=== PATIENT | female | born 1990 | race Native Hawaiian/Other Pacific Islander ===

== ENCOUNTER → 2021-12-25 11:27 | Outpatient (CLI) | payer OTHER, SELFPAY ==
[2021-12-25 14:28] LABS: COVID19 -Nasal RAPID Negative (Negative)
== END ==
PROVIDERS: Referring Provider Orthopaedic Surgery; Visit Provider Orthopaedic Surgery
DX: Z20.822 Contact with and (suspected) exposure to COVID-19 (principal)
CPT/HCPCS: 87635; C9803

== ENCOUNTER 2021-12-26 10:20 | Day surgery (SDC) | payer OTHER, SELFPAY ==
[2021-12-25 12:32] VITALS: BMI 25.4
[2021-12-26] VITALS (10 sets, daily range): BP systolic 104–134; BP diastolic 56–86; PULSE 67–99; RESP 12–17; TEMP 36.5–37.3; O2SAT 94–100; BMI 24.2
[2021-12-26] MEDS: LACTATED RINGERS 1,000 ML 42 ML IV (11:07)
--- NOTE | 2021-12-26 11:54 | PM.PREOP ---
Pre-operative Note Interval Note History & Physical reviewed/Exam performed by Physician: Yes Changes to H&P: No
[2021-12-26] MEDS: CEFAZOLIN 2 GM/100 ML PREMIX 100 ML IV (12:15)
[2021-12-26] MEDS: TRANEXAMIC ACID 1,000 MG in SODIUM CHLORIDE 0.9% 100 ML 200 MG IV (12:20)
--- NOTE | 2021-12-26 12:34 | SUR.OPER ---
Supine on padded OR bed. Pillow under head, arms secured on padded armboards <90 degree abduction. Safety belt across torso. Non-operative leg secured with tape over blanket over lower leg. Operative leg secured in Nathe positioner. Foam padded brace at thigh of operative leg.
--- NOTE | 2021-12-26 14:38 | PM.OP.1 ---
Procedure & Clinicians Procedure: One stage ACL revision to a quadriceps autograft Same procedure as scheduled: Yes Indications: Rachel is a 31-year-old female who had a history of a ACL rupture which was treated with a hamstring autograft with biotenodesis screws. This became loose over time and now she has a nonfunctional graft. 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 We discussed that to restore her anterior drawer and pivot shift a reconstruction would be required. Risks were again discussed and she wished to go forward Surgeon: Marcelo Hu Medical Insurance Clerk: Salma Sam Anesthesia Type: General Operative Notes Findings: Findings: Exam under anesthesia: 2B Sony's with positive anterior drawer and positive visit shift Patellofemoral joint: Mostly Normal articulation and cartilage some fraying along the medial facet Medial and lateral gutters: No loose bodies noted Medial compartment: Medial meniscus with delamination and fraying especially along the posterior horn and body and medial tibial plateau with normal cartilage, medial femoral condyle also with normal cartilage Intercondylar notch: Intact PCL, incompetent ACL with loose and frayed fibers and longitudinal tearing Lateral compartment: Lateral meniscus intact, lateral tibial plateau with normal cartilage, lateral femoral condyle with some cartilage fraying Closure Type: primary Specimen(s): none sent Prosthetic devices, grafts, tissues, transplants, or devices: 1. Arthrex ABS button, tight rope (femer) 2. Tightrope ABS button 14 mm round (tibia) 3. Arthrex SwiveLock Estimated Blood Loss (mL): 20 Blood products transfused: none Tourniquet time (min): 30 Procedure in detail: Patient was identified in the preoperative area. The correct knee was marked with my initials. The patient was then brought into the operating room. A surgical pause was confirmed in the correct site of surgery was again identified. The patient was given perioperative IV antibiotics followed by induction of general anesthesia. A tourniquet was applied to the upper thigh. The lower extremity was then prepped and draped in a standard sterile fashion. After exam under anesthesia revealed an ACL insufficiency, the decision was made to proceed with ACL reconstruction. We began with diagnostic arthroscopy. First a outflow portal was placed, then anterolateral and anteromedial portals were made. Arthroscope was inserted through the lateral portal and a diagnostic arthroscopy was performed with the above-noted findings. Aggressive synovectomy and debridement was performed including the medial plica and anterior fat pad to ensure full range of motion and full extension. It was noted that there was a tear of the medial meniscus. A partial meniscectomy was performed debriding about 2 mm and smoothing the edges. Gentle chondroplasty was performed of the lateral and patellofemoral compartment. Once diagnostic arthroscopy was completed. There was a nonfunctional anterior cruciate ligament. The remnant of the ligament was debrided. Minimal notchplasty was performed. The previous ACL tunnel was identified which was vertical in nature and clearly drilled from the tibial tunnel. Using the arthro Wand, the tibial tunnel was identified. An incision was made over the previous tibial tunnel drill hole, and a wire was inserted through the tunnel. This was then reamed with a 9 mm straight Reamer and then up to a 10 mm straight Reamer. Arthroscope was put into the tunnel and it was noted to have bony balderas without soft tissue intervening. A stopper was placed into the tunnel and we returned to the femoral side. Using a flip cutter guide, a new tunnel was created just below the former. The FlipCutter was set to 10 mm and a new tunnel was drilled. A fiber stick was used to pass sutures. We then removed the arthroscope, wrapped the leg with an Esmarch and inflated the tourniquet. A 3 cm incision was made over the quadriceps tendon. Dissection was carried down to the tendon and over the patella. Debris was cleaned off with an osteotome. We then used a Quad Pro harvester, set at 10 mm and obtained a 65 mm graft. The graft was then prepared on the back table. The quadriceps tendon was then closed with 2. Ethibond suture. Tourniquet was then deflated for a overall tourniquet time of 30 minutes. The graft was then passed through the tibial tunnel into the femoral tunnel. The button was flipped and this was confirmed on fluoroscopy. Approximately 23 mm of graft was brought into the femoral tunnel. The tibial side was then brought down with a 14 mm manhole cover and backed up with a SwiveLock. Before the graft was fully tensioned, it was cycled showing 2 mm of excursion at the terminal 0? of extension. Final tension and tightening was done at 0? of extension with a very slight posterior drawer. Arthroscope was reinserted showing good graft tension and appropriate depth in each tunnel. Sutures were then cut and closure was performed with 2-0 Vicryl, 3-0 Monocryl and closed with Xeroform 4x4s and then placed into a hinged knee brace. 15 cc of Marcaine were placed into the joint. Complications: none Post-operative Condition: stable Disposition: PACU Plan for aftercare: Dressings may come off in 3 days at which she may take a shower and let water run over the incisions. Pat dry, and ensure they are completely dry before replacing dressings. Dressings then may come completely off after 5 days from surgery. Hinged knee brace locked for 2 days, then unlocked and work on range of motion. She will start physical therapy protocol this week.
[2021-12-26] MEDS: BUPIVACAINE 0.5% W/ EPI (PF) 30 ML VIAL INJ (14:41)
[2021-12-26] MEDS: OXYCODONE/ACETAMINOPHEN 5/325 TABLET 1 TAB PO (15:25)
[2021-12-26] MEDS: ONDANSETRON 4 MG/2 ML INJ IV ×2 (16:05→16:33)
--- NOTE | 2021-12-26 16:12 | SUR.PHASEII ---
Zofran and Queasease provided for nausea. Patient resting. Spouse at bedside. Call light within reach.
--- NOTE | 2021-12-26 17:03 | SUR.PHASEII ---
Patient reported persistent nausea. Dr. Whitaker notified. Phenergan 12.5mg po ordered, may repeat x1.
--- NOTE | 2021-12-26 18:18 | SUR.PHASEII ---
patient to use crutches post op per Dr. Hu. Crutches provided and fitted to patient.
--- NOTE | 2021-12-26 18:29 | SUR.PHASEII ---
Discharge instructions: Clarified instructions with Dr. Hu. Per MD: Dressing: patient to keep CDI, then may remove and shower after 2 days. Replace dressing and wear for another three days, total of 5 days post op with a dressing. Brace: keep locked for 2 days, then may unlock. Wear brace till patient gets further instructions from physical therapy. Crutches: Patient to use for 2 weeks for stability. Pain/nausea medication: Requested MD prescribe to [facility] in [place]. Message was left on patient's phone with this information.
== END 2021-12-26 18:05 | disposition home or self-care (01) ==
PROVIDERS: Referring Provider Orthopaedic Surgery; Visit Provider Orthopaedic Surgery
PROC: (CPT 29888; principal; 2021-12-26 12:00)
DX: S83.511A Sprain of anterior cruciate ligament of right knee, initial encounter (principal); S83.241A Other tear of medial meniscus, current injury, right knee, initial encounter; S83.31XA Tear of articular cartilage of right knee, current, initial encounter
CPT/HCPCS: 29888; 29876; 29881; 76000; 81025; C1713; J0690; J1100; J1170; J1885; J2250; J2405; J2704; J3010